=== PATIENT | female | born 1960 | race Two or more races ===

== ENCOUNTER 2024-04-18 15:32 | Inpatient (IN) | payer MEDICARE, OTHER ==
[~2024-04-18] VITALS: Ht 157.5 cm; Wt 86.2 kg
[2024-04-18] MEDS ORDERED: heparin 25,000 UNIT/250ml bag 250 ML IV PRN (15:45)
[2024-04-18 16:23] LABS: BASOPHILS # (AUTO) 0.1 X10'3 (0-0.2); BASOPHILS % (AUTO) 0.5 % (0-1); EOSINOPHILS # (AUTO) 0.2 X10'3 (0-0.9); EOSINOPHILS % (AUTO) 1.6 % (0-6); HEMATOCRIT 51.3 % (35.0-45.0); HEMOGLOBIN 17.3 g/dl (12.0-16.0); LYMPHOCYTES # (AUTO) 2.4 X10'3 (1.1-4.8); LYMPHOCYTES % (AUTO) 24.1 % (21-51); MEAN CORPUSCULAR HEMOGLOBIN 30.3 PG (27.0-31.0); MEAN CORPUSCULAR HGB CONC 33.7 g/dL (33.0-36.5); MEAN CORPUSCULAR VOLUME 89.9 FL (78-98); MEAN PLATELET VOLUME 8.9 FL (7.4-10.4); MONOCYTES # (AUTO) 0.6 X10'3 (0-0.9); NEUTROPHILS # (AUTO) 6.6 X10'3 (1.8-7.7); NEUTROPHILS % (AUTO) 67.8 % (42-75); PLATELET COUNT 248 X10'3 (140-440); RED BLOOD COUNT 5.71 X10'6 (4.20-5.60); RED CELL DISTRIBUTION WIDTH 13.5 % (11.5-14.5); WHITE BLOOD COUNT 9.8 X10'3 (4.5-11.0)
[2024-04-18] MEDS ORDERED: heparin 10,000 units/1 ML INJ IV PRN (16:25)
[2024-04-18 16:27] LABS: ALANINE AMINOTRANSFERASE 36 U/L (12-78); ALBUMIN 3.3 G/DL (3.4-5.0); ALBUMIN/GLOBULIN RATIO 0.8 (1.1-1.5); ALKALINE PHOSPHATASE 67 IU/L (46-116); ANION GAP 10 (8-16); ASPARTATE AMINO TRANSFERASE 24 U/L (10-37); BILIRUBIN,TOTAL 0.7 MG/DL (0.1-1.0); BLOOD UREA NITROGEN 21 MG/DL (7-18); BUN/CREATININE RATIO 16.9 (10.0-20.0); CALCIUM 8.3 MG/DL (8.5-10.1); CHLORIDE 100 MMOL/L (99-107); CREATININE 1.24 MG/DL (0.40-0.90); GLUCOSE 127 MG/DL (70-104); SODIUM 135 MMOL/L (135-145); TOTAL PROTEIN 7.5 G/DL (6.4-8.2); eCRCL 37 ML/MIN; eGFR 43 ML/MIN
[2024-04-18] MEDS: heparin 25,000 UNIT/250ml bag 250 ML IV PRN (16:36)
[2024-04-18 16:37] LABS: MAGNESIUM 2.4 MG/DL (1.5-2.4); PRO BRAIN NATRIURETIC PEPTIDE 221 PG/ML (0-125)
[2024-04-18 16:39] LABS: POTASSIUM 3.6 MMOL/L (3.5-5.1)
[2024-04-18] MEDS: MESSAGE TO NURSING IV ONE ×2 (16:41→23:52)
[2024-04-18] MEDS: HEPARIN DRIP INITAL BOLUS --- DO NOT GIVE/ORDER MC ONE (16:41)
[2024-04-18 16:42] LABS: APTT 69 SECONDS (22-32); INR 1.1 INR
[2024-04-18 16:49] LABS: PROTHROMBIN TIME 11.3 SECONDS (9.0-12.0)
[2024-04-18] MEDS ORDERED: mag hydrox/Alum hydrox/simeth 30ml oral suspension PO PRN (17:35)
[2024-04-18] MEDS ORDERED: acetaminophen 325mg tablet PO PRN (17:35)
[2024-04-18] MEDS ORDERED: magnesium hydroxide 30ml (MOM) UD suspension PO PRN (17:35)
[2024-04-18] MEDS ORDERED: magnesium sulf-water 4G/100mL 100 ML IV PRN (17:35)
[2024-04-18] MEDS ORDERED: magnesium Cl slow-release 64mg tablet PO PRN (17:35)
[2024-04-18] MEDS ORDERED: magnesium sulf-water 2g/50mL 50 ML IV PRN (17:35)
[2024-04-18] MEDS ORDERED: nitroGLYCERIN 0.4mg SUBLingual tab SL PRN (18:25)
[2024-04-18 18:52] LABS: OSMOLALITY 289 MOSM/K (280-300)
[2024-04-18 19:13] LABS: HEMOGLOBIN A1C 5.7 % (4.5-6.2)
[2024-04-18] MEDS: docusate sod 100mg capsule PO SCH (19:57)
[2024-04-18] MEDS: K and/or MAG REPLACEMENT MC SCH (19:57)
[2024-04-18 20:44] LABS: BILIRUBIN,URINE NEGATIVE (Neg); CLARITY,URINE CLEAR (Clear); COLOR,URINE YELLOW (Yellow); GLUCOSE, URINE NEGATIVE (Neg); KETONES,URINE NEGATIVE (Neg); LEUKOCYTE ESTERASE ,URINE NEGATIVE (Neg); NITRITES, URINE NEGATIVE (Neg); OCCULT BLOOD,URINE NEGATIVE (Neg); PROTEIN,URINE NEGATIVE (Neg); UROBILINOGEN,URINE 0.2 E.U/dL (0.2-1.0)
[2024-04-18 20:48] LABS: UA COLLECTION TYPE CLN CATCH MIDSTREAM
[2024-04-18 20:54] LABS: SODIUM,URINE RANDOM 108 MEQ/L; TOTAL PROTEIN,URINE RANDOM < 6.0 MG/DL
[2024-04-18 20:59] LABS: OSMOLALITY UA 521.5 MOSM/K (50-1400)
[2024-04-18 22:20] VITALS: BP 137/88; PULSE 65; RESP 16; TEMP 97.5; O2SAT 98
[2024-04-18 23:00] VITALS: RESP 16; O2SAT 98
[2024-04-18] MEDS: acetaminophen 325mg tablet PO PRN (23:21)
[2024-04-19] VITALS (16 sets, daily range): BP systolic 74–197; BP diastolic 46–122; PULSE 58–76; RESP 15–19; TEMP 97.2–99; O2SAT 94–98
[2024-04-19 06:39] LABS: BASOPHILS % (AUTO) 0.4 % (0-1); EOSINOPHILS # (AUTO) 0.2 X10'3 (0-0.9); EOSINOPHILS % (AUTO) 2.3 % (0-6); HEMATOCRIT 49.7 % (35.0-45.0); HEMOGLOBIN 16.9 g/dl (12.0-16.0); LYMPHOCYTES # (AUTO) 2.6 X10'3 (1.1-4.8); LYMPHOCYTES % (AUTO) 32.6 % (21-51); MEAN CORPUSCULAR HEMOGLOBIN 30.4 PG (27.0-31.0); MEAN CORPUSCULAR VOLUME 89.6 FL (78-98); MEAN PLATELET VOLUME 9.1 FL (7.4-10.4); MONOCYTES # (AUTO) 0.5 X10'3 (0-0.9); MONOCYTES % (AUTO) 6.6 % (2-12); NEUTROPHILS # (AUTO) 4.6 X10'3 (1.8-7.7); NEUTROPHILS % (AUTO) 58.1 % (42-75); PLATELET COUNT 222 X10'3 (140-440); RED BLOOD COUNT 5.55 X10'6 (4.20-5.60); RED CELL DISTRIBUTION WIDTH 13.5 % (11.5-14.5)
[2024-04-19 06:54] LABS: APTT 48 SECONDS (22-32); INR 1.1 INR; PROTHROMBIN TIME 11.2 SECONDS (9.0-12.0)
[2024-04-19 07:01] LABS: ALBUMIN 2.8 G/DL (3.4-5.0); ANION GAP 7 (8-16); BLOOD UREA NITROGEN 19 MG/DL (7-18); CALCIUM 8.5 MG/DL (8.5-10.1); CHLORIDE 100 MMOL/L (99-107); CHOL/HDL RATIO 4.3 (0.00-4.99); CHOLESTEROL 212 MG/DL (0-200); CREATININE 1.19 MG/DL (0.40-0.90); GLUCOSE 109 MG/DL (70-104); HDL CHOLESTEROL 49 MG/DL (35-60); LDL CHOLESTEROL 116 MG/DL (50-100); MAGNESIUM 3.5 MG/DL (1.5-2.4); POTASSIUM 3.2 MMOL/L (3.5-5.1); SODIUM 134 MMOL/L (135-145); TOTAL CARBON DIOXIDE 26.9 MMOL/L (24-32); eCRCL 37 ML/MIN; eGFR 45 ML/MIN
[2024-04-19 07:22] LABS: TRIGLYCERIDES 383 MG/DL (20-135)
[2024-04-19] MEDS: MESSAGE TO NURSING IV ONE (07:22)
[2024-04-19] MEDS: aspirin 81mg, enteric-coated 1 TAB TABLET.DR PO SCH (08:00)
[2024-04-19] MEDS: fenofibrate 48mg tablet PO SCH (09:50)
[2024-04-19] MEDS: potassium Cl 40MEQ/1/2NS 520ml 520 ML IV PRN (10:10)
[2024-04-19] MEDS: ondansetron/PF 4mg/2ml inj IV PRN (10:29)
[2024-04-19] MEDS ORDERED: verapamil 2.5 mg/ml inj IV ONE (10:30)
[2024-04-19] MEDS ORDERED: iohexol 350MG/ML 100ml bottle IV ONE ×2 (10:30→11:22)
[2024-04-19] MEDS ORDERED: heparin 1,000unit/ml 10ml vial 0 ML ONE (10:30)
[2024-04-19] MEDS ORDERED: LIDOcaine 1% (10mg/ml) 2ml vial ONE (10:30)
[2024-04-19] MEDS ORDERED: fentaNYL/PF 50MCG/1 ML 2ML syringe ONE (10:30)
[2024-04-19] MEDS ORDERED: midazolam 1 mg/ML 2ml injection ONE (10:30)
[2024-04-19] MEDS ORDERED: nitroGLYCERIN 500mcg/5mL D5W 5 ML IV ONE (10:31)
[2024-04-19] MEDS ORDERED: LIDOcaine 1% 30ml preserv. free vial ONE (11:14)
[2024-04-19] MEDS ORDERED: heparin 1,000unit/ml 10ml vial 10 ML ONE (11:22)
[2024-04-19] MEDS ORDERED: aspirin 325mg tablet ONE (11:26)
[2024-04-19] MEDS ORDERED: ticagrelor 90mg tablet ONE (11:26)
[2024-04-19] MEDS ORDERED: atropine 0.1mg/ml 10ml syringe ONE (11:42)
[2024-04-19] MEDS: potassium Cl 20 mEq SR tablet PO PRN ×2 (12:21→19:53)
[2024-04-19] MEDS ORDERED: metoprolol succinate 25mg (24-HOUR) SR. Tablet PO SCH (12:40)
[2024-04-19] MEDS: atorvastatin 20mg tablet PO SCH (13:35)
[2024-04-19] MEDS: hydrALAZINE 20mg/ml inj. IV ONE (13:38)
[2024-04-19] MEDS: labetalol 20mg/4ml (5mg/ml) syringe IV ONE (16:17)
[2024-04-19] MEDS ORDERED: LOSA1TAB36 PO (17:18)
[2024-04-19] MEDS ORDERED: FAMO40TA86 PO (17:18)
[2024-04-19] MEDS ORDERED: FEXO-236 PO (17:41)
[2024-04-19] MEDS ORDERED: GUAI-1078 PO (17:42)
[2024-04-19] MEDS: ticagrelor 90mg tablet PO SCH (19:52)
[2024-04-19] MEDS: famotidine 20mg tablet PO ONE (22:07)
[2024-04-20] MEDS: pantoprazole 40 MG vial IV SCH (01:45)
[2024-04-20 01:52] VITALS: BP 118/74; PULSE 65; RESP 25; TEMP 98.1; O2SAT 95
[2024-04-20 06:00] VITALS: BP 115/67; PULSE 66; RESP 16; TEMP 97.8; O2SAT 93
[2024-04-20 06:32] LABS: BASOPHILS % (AUTO) 0.3 % (0-1); EOSINOPHILS # (AUTO) 0.1 X10'3 (0-0.9); EOSINOPHILS % (AUTO) 0.6 % (0-6); HEMATOCRIT 49.4 % (35.0-45.0); HEMOGLOBIN 16.7 g/dl (12.0-16.0); LYMPHOCYTES # (AUTO) 1.4 X10'3 (1.1-4.8); LYMPHOCYTES % (AUTO) 10.6 % (21-51); MEAN CORPUSCULAR HEMOGLOBIN 30.3 PG (27.0-31.0); MEAN CORPUSCULAR HGB CONC 33.8 g/dL (33.0-36.5); MEAN CORPUSCULAR VOLUME 89.5 FL (78-98); MEAN PLATELET VOLUME 8.8 FL (7.4-10.4); MONOCYTES # (AUTO) 0.8 X10'3 (0-0.9); MONOCYTES % (AUTO) 6.4 % (2-12); NEUTROPHILS # (AUTO) 10.8 X10'3 (1.8-7.7); NEUTROPHILS % (AUTO) 82.1 % (42-75); PLATELET COUNT 232 X10'3 (140-440); RED BLOOD COUNT 5.52 X10'6 (4.20-5.60); RED CELL DISTRIBUTION WIDTH 13.4 % (11.5-14.5); WHITE BLOOD COUNT 13.2 X10'3 (4.5-11.0)
[2024-04-20 06:45] LABS: APTT 27 SECONDS (22-32); PROTHROMBIN TIME 10.9 SECONDS (9.0-12.0)
[2024-04-20 06:47] LABS: ANION GAP 12 (8-16); BLOOD UREA NITROGEN 18 MG/DL (7-18); BUN/CREATININE RATIO 14.3 (10.0-20.0); CALCIUM 8.1 MG/DL (8.5-10.1); CHLORIDE 102 MMOL/L (99-107); CREATININE 1.26 MG/DL (0.40-0.90); GLUCOSE 121 MG/DL (70-104); MAGNESIUM 2.3 MG/DL (1.5-2.4); POTASSIUM 3.9 MMOL/L (3.5-5.1); SODIUM 136 MMOL/L (135-145); TOTAL CARBON DIOXIDE 21.6 MMOL/L (24-32); eCRCL 35 ML/MIN; eGFR 42 ML/MIN
[2024-04-20] MEDS: HYDROchlorothiazide 12.5mg capsule PO SCH (08:28)
[2024-04-20] MEDS: losartan 50mg tablet PO SCH (08:28)
[2024-04-20] MEDS: famotidine 20mg tablet PO SCH (08:30)
[2024-04-20] MEDS: metoprolol succinate 25mg (24-HOUR) SR. Tablet PO SCH (08:30)
[2024-04-20 11:00] VITALS: BP 105/60; PULSE 72; RESP 18; O2SAT 96
[2024-04-20] MEDS ORDERED: NITR0.4T51 SL (11:34)
[2024-04-20] MEDS ORDERED: ATOR20TA66 PO (11:34)
[2024-04-20] MEDS ORDERED: ASPI-1071 PO (11:34)
[2024-04-20] MEDS ORDERED: METO-395 PO (11:34)
[2024-04-20] MEDS ORDERED: TICA90TA PO (11:34)
[2024-04-20] MEDS ORDERED: FENO48TA10 PO (11:34)
[2024-04-20] MEDS ORDERED: famotidine 20mg tablet PO SCH (12:34)
== END 2024-04-20 15:20 | disposition home or self-care (01) | DRG 321 ==
LOC: ER 15:33 → ED HOLD 16:20 → PCU 3S 22:10
PROVIDERS: ADMIT Family Medicine; ATTEND Family Medicine
PROC: 4A023N7 Measurement of Cardiac Sampling and Pressure, Left Heart, Percutaneous Approach (ICD-10-PCS; principal; 2024-04-19)
PROC: 027034Z Dilation of Coronary Artery, One Artery with Drug-eluting Intraluminal Device, Percutaneous Approach (ICD-10-PCS; 2024-04-19)
PROC: B2111ZZ Fluoroscopy of Multiple Coronary Arteries using Low Osmolar Contrast (ICD-10-PCS; 2024-04-19)
PROC: B3101ZZ Fluoroscopy of Thoracic Aorta using Low Osmolar Contrast (ICD-10-PCS; 2024-04-19)
PROC: B41F1ZZ Fluoroscopy of Right Lower Extremity Arteries using Low Osmolar Contrast (ICD-10-PCS; 2024-04-19)
PROC: B3111ZZ Fluoroscopy of Right Brachiocephalic-Subclavian Artery using Low Osmolar Contrast (ICD-10-PCS; 2024-04-19)
DX: I21.4 Non-ST elevation (NSTEMI) myocardial infarction (principal); N17.0 Acute kidney failure with tubular necrosis; I10 Essential (primary) hypertension; Z82.49 Family history of ischemic heart disease and other diseases of the circulatory system; Z88.0 Allergy status to penicillin; Z80.0 Family history of malignant neoplasm of digestive organs; Z79.82 Long term (current) use of aspirin
CPT/HCPCS: 93306; 93458; 93567; 99291; C9600; 36415; 71045; 80048; 80053; 80061; 81003; 82570; 83036; 83735; 83880; 83930; 83935; 84133; 84156; 84300; 84484; 85025; 85610; 85730; 87081; 87207; 93005; 97116; 97161; 97530; 99152; 99153; A6258; C1725; C1751; C1760; C1769; C1874; C1894; G0378; J0360; J0461; J1644; J2003; J2250; J2405; J2470; J3010; J3480; J3490; J7030; Q9967